=== PATIENT | female | born 1985 | race Caucasian/White ===

== ENCOUNTER → 2018-01-06 | Outpatient (CLI) | payer BC | LOC: RAD 22:43 | PROVIDERS: ATTEND Emergency Medicine | DX: R10.11 Right upper quadrant pain (principal) ==

== ENCOUNTER 2018-01-09 19:14 | Inpatient (IN) | payer BC ==
[2018-01-09] MEDS ORDERED: ONDANSETRON HCL INJ/PF 4 MG/2 ML SDV IV ONE (19:46)
[2018-01-09] MEDS ORDERED: NORMAL SALINE 1000 ML 1,000 ML IV ONE (19:46)
--- NOTE | 2018-01-09 19:54 | ER Document Report ---
ED GI/ - General Mode of Arrival: Ambulatory Information source: Patient TRAVEL OUTSIDE OF THE [place] IN LAST 30 DAYS: No <CORINA LIRA - Last Filed: 01/09/18 21:23> <FADY QUACH - Last Filed: 01/09/18 23:10> - General Chief Complaint: Abdominal Pain Stated Complaint: ABDOMINAL PAIN Time Seen by Provider: 01/09/18 19:35 Notes: Patient is a 32 year old female with a history of migraines presents to the emergency department complaining of RUQ abdominal pain, nausea and vomiting onset 3 days ago. Patient states her abdominal pain has been constant and she has taken Prilosec,Zantac and Carafate which she states temporarily relived her pain. Patient also states her abdominal pain is exacerbated with deep breathing. She mentions only vomiting 3 days ago but has had intermittent nausea since the onset of her symptoms. Spouse performed an gallbladder ultrasound 3 days ago which did not show any stones, sludge or common bile duct enlargement. Patient states the abdominal pain is not as severe today than when initially onset and further states her primary reason for coming to the emergency department today was due to developing a fever. Patient's LMP was 12/21/2017. (CORINA LIRA) - Related Data Allergies/Adverse Reactions: Sulfa (Sulfonamide Antibiotics) Allergy (Verified 01/09/18 19:51) Past Medical History - General Information source: Patient - Social History Smoking Status: Unknown if Ever Smoked Family History: Reviewed & Not Pertinent Neurological Medical History: Reports: Hx Migraine Past Surgical History: Reports: Hx Tonsillectomy, Other - [employer] teeth removal <CORINA LIRA - Last Filed: 01/09/18 21:23> Review of Systems - Review of Systems Constitutional: See HPI, Fever EENT: No symptoms reported Cardiovascular: No symptoms reported Respiratory: No symptoms reported Gastrointestinal: See HPI, Abdominal pain, Nausea, Vomiting Genitourinary: No symptoms reported Female Genitourinary: No symptoms reported Musculoskeletal: No symptoms reported Skin: No symptoms reported Hematologic/Lymphatic: No symptoms reported Neurological/Psychological: No symptoms reported -: Yes All other systems reviewed and negative <CORINA LIRA - Last Filed: 01/09/18 21:23> Physical Exam <CORINA LIRA - Last Filed: 01/09/18 21:23> <FADY QUACH - Last Filed: 01/09/18 23:10> - Vital signs Vitals: Temp Pulse Resp BP Pulse Ox 98.0 F 116 H 24 H 161/100 H 98 01/09/18 19:19 01/09/18 19:19 01/09/18 19:19 01/09/18 19:19 01/09/18 19:19 - Notes Notes: GENERAL: Alert, interacts well. No acute distress. HEAD: Normocephalic, atraumatic. EYES: Pupils equal, round, and reactive to light. Extraocular movements intact. ENT: Oral mucosa moist, tongue midline. NECK: Full range of motion. Supple. Trachea midline. LUNGS: Clear to auscultation bilaterally, no wheezes, rales, or rhonchi. No respiratory distress. HEART: Regular rate and rhythm. No murmurs, gallops, or rubs. ABDOMEN: Soft, Right upper quadrant exquisitely tender to palpation. Non- distended. Bowel sounds present in all 4 quadrants. EXTREMITIES: Moves all 4 extremities spontaneously. NEUROLOGICAL: Alert and oriented x3. Normal speech. PSYCH: Normal affect, normal mood. SKIN: Warm, dry, normal turgor. No rashes or lesions noted. (CORINA LIRA) Course - Laboratory Result Diagrams: 01/09/18 19:35 01/09/18 19:35 <CORINA LIRA - Last Filed: 01/09/18 21:23> - Laboratory Result Diagrams: 01/09/18 19:35 01/09/18 19:35 - Diagnostic Test Radiology reviewed: Image reviewed - Solitary gallstone lodged in the gallbladder neck with no bladder wall thickening and pericholecystic fluid <FADY QUACH - Last Filed: 01/09/18 23:10> - Re-evaluation Re-evalutation: 01/09/18 23:09 Initial blood pressure reading was not accurate, we repeated it and she was in the 123 systolic range. (FADY QUACH) - Vital Signs Vital signs: Temp Pulse Resp BP Pulse Ox 98.7 F 116 H 23 H 123/88 H 100 01/09/18 20:40 01/09/18 19:19 01/09/18 22:01 01/09/18 22:01 01/09/18 22:01 - Laboratory Laboratory results interpreted by me: 01/09/18 01/09/18 19:35 19:35 WBC 13.9 H Seg Neutrophils % 79.3 H Absolute Neutrophils 11.1 H Glucose 134 H AST 12 L Discharge <CORINA LIRA - Last Filed: 01/09/18 21:23> - Discharge Unit Admitted: Surgical Floor <FADY QUACH - Last Filed: 01/09/18 23:10> - Discharge Clinical Impression: Cholecystitis, acute with cholelithiasis Qualifiers: Cholelithiasis location: gallbladder Biliary obstruction: without biliary obstruction Qualified Code(s): K80.00 - Calculus of gallbladder with acute cholecystitis without obstruction Leukocytosis Qualifiers: Leukocytosis type: unspecified Qualified Code(s): D72.829 - Elevated white blood cell count, unspecified Condition: Stable Disposition: ADMITTED INPATIENT Referrals: WILFREDO LEMA MD [ACTIVE STAFF] - Follow up as needed Scribe Attestation: 01/09/18 20:44 I personally performed the services described in the documentation, reviewed and edited the documentation which was dictated to the scribe in my presence, and it accurately records my words and actions. (FADY QUACH) Scribe Documentation - Scribe Written by Iker:: Iker Lawson, 01/09/2018 19:58 acting as scribe for :: Berto <CORINA LIRA - Last Filed: 01/09/18 21:23>
[2018-01-09 20:03] LABS: ABSOLUTE LYMPHOCYTES (AUTO) 1.8 10^3/uL (0.5-4.7); ABSOLUTE NEUT (AUTO) 11.1 10^3/uL (1.7-8.2); BASOPHILS % (AUTO) 0.2 % (0-2); EOSINOPHILS % (AUTO) 0.3 % (0-6); HEMOGLOBIN 13.1 g/dL (12.0-15.5); LYMPHOCYTES % (AUTO) 13.2 % (13-45); MEAN CORPUSCULAR HEMOGLOBIN 28.6 pg (27.0-33.4); MEAN CORPUSCULAR HGB CONC 33.5 g/dL (32.0-36.0); MEAN CORPUSCULAR VOLUME 85 fl (80-97); PLATELET COUNT 330 10^3/uL (150-450); RED BLOOD COUNT 4.57 10^6/uL (3.72-5.28); RED CELL DISTRIBUTION WIDTH 12.3 % (11.5-14.0); SEGMENTED NEUTROPHILS % (AUTO) 79.3 % (42-78); TOTAL CELLS COUNTED % (AUTO) 100 %; WHITE BLOOD COUNT 13.9 10^3/uL (4.0-10.5)
[2018-01-09 20:08] LABS: ALANINE AMINOTRANSFERASE 19 U/L (9-52); ALBUMIN 4.6 g/dL (3.5-5.0); ALKALINE PHOSPHATASE 65 U/L (38-126); ANION GAP 9 (5-19); ASPARTATE AMINO TRANSFERASE 12 U/L (14-36); BILIRUBIN,DIRECT 0.4 mg/dL (0.0-0.4); BILIRUBIN,TOTAL 0.5 mg/dL (0.2-1.3); BLOOD UREA NITROGEN 8 mg/dL (7-20); CALCIUM 9.6 mg/dL (8.4-10.2); CARBON DIOXIDE 29 mmol/L (22-30); CHLORIDE 100 mmol/L (98-107); GLUCOSE 134 mg/dL (75-110); LIPASE 42.9 U/L (23-300); POTASSIUM 4.1 mmol/L (3.6-5.0); SODIUM 138.1 mmol/L (137-145); TOTAL PROTEIN 7.9 g/dL (6.3-8.2)
[2018-01-09 20:20] LABS: APPEARANCE,URINE CLEAR; BILIRUBIN,URINE NEGATIVE (NEGATIVE); COLOR,URINE COLORLESS; GLUCOSE, URINE NEGATIVE (NEGATIVE); KETONES,URINE NEGATIVE (NEGATIVE); LEUKOCYTE ESTERASE,URINE NEGATIVE (NEGATIVE); NITRITE,URINE NEGATIVE (NEGATIVE); PROTEIN,URINE NEGATIVE (NEGATIVE); URINE SPECIFIC GRAVITY 1.002; UROBILINOGEN,URINE NEGATIVE mg/dL (<2.0)
[2018-01-09] MEDS ORDERED: PIPERACILLIN/TAZOBACTAM 3.375 GM VIAL IV ONE (23:07)
[2018-01-09] MEDS ORDERED: ONDANSETRON HCL INJ/PF 4 MG/2 ML SDV IV PRN (23:39)
--- NOTE | 2018-01-09 23:39 | PDOC H&P ---
History of Present Illness Admission Date/PCP: 01/09/18 Patient complains of: RUQ abdominal pain History of Present Illness: MARIA LUISA BRUNER is a 32 year old female healthy with a 1 week hx of abdominal discomfort, then localized in the RUQ for the past 3 days with intense nausea and anorexia. AN US of the GB has been done and it is significant for acute cholecystitis with cholelithiasis Past Medical History Neurological Medical History: Reports: Migraine Past Surgical History Past Surgical History: Reports: Tonsillectomy, Other - [employer] teeth removal Social History Smoking Status: Unknown if Ever Smoked Family History Family History: Reviewed & Not Pertinent Parental Family History Reviewed: No Children Family History Reviewed: No Sibling(s) Family History Reviewed.: No Medication/Allergy Home Medications: Hydrocodone/Acetaminophen [Hydrocodone-Acetamin 5-325 mg] 1 tab PO Q4H PRN 01/09 Metoclopramide HCl [Reglan 10 mg Tablet] 10 mg PO Q8H PRN 01/09/18 Omeprazole 20 mg PO DAILY 01/09/18 Ranitidine HCl 150 mg PO BID 01/09/18 Sucralfate [Carafate 1 gm Tablet] 1,000 mg PO Q6H 01/09/18 Allergies/Adverse Reactions: Sulfa (Sulfonamide Antibiotics) Allergy (Verified 01/09/18 19:51) Physical Exam Vital Signs: Temp Pulse Resp BP Pulse Ox 98.7 F 116 H 23 H 123/88 H 100 01/09/18 20:40 01/09/18 19:19 01/09/18 22:01 01/09/18 22:01 01/09/18 22:01 Intake & Output 01/08/18 01/09/18 01/10/18 06:59 06:59 06:59 Intake Total 1000 Balance 1000 Weight 78 kg General appearance: PRESENT: mild distress Head exam: PRESENT: atraumatic Eye exam: PRESENT: EOMI Mouth exam: PRESENT: neck supple Neck exam: PRESENT: full ROM Respiratory exam: PRESENT: clear to auscultation deanna Cardiovascular exam: PRESENT: RRR GI/Abdominal exam: PRESENT: soft, tenderness - in the RUQ with grimacing Rectal exam: PRESENT: deferred Extremities exam: PRESENT: full ROM Musculoskeletal exam: PRESENT: full ROM Neurological exam: PRESENT: alert, oriented to time, oriented to situation Skin exam: PRESENT: warm Results Laboratory Results: 01/09/18 19:35 01/09/18 19:35 01/09/18 01/09/18 01/09/18 19:35 19:35 20:00 WBC 13.9 H RBC 4.57 Hgb 13.1 Hct 39.0 MCV 85 MCH 28.6 MCHC 33.5 RDW 12.3 Plt Count 330 Seg Neutrophils % 79.3 H Lymphocytes % 13.2 Monocytes % 7.0 Eosinophils % 0.3 Basophils % 0.2 Absolute Neutrophils 11.1 H Absolute Lymphocytes 1.8 Absolute Monocytes 1.0 Absolute Eosinophils 0.0 Absolute Basophils 0.0 Sodium 138.1 Potassium 4.1 Chloride 100 Carbon Dioxide 29 Anion Gap 9 BUN 8 Creatinine 0.67 Est GFR ( Amer) > 60 Est GFR (Non-Af Amer) > 60 Glucose 134 H Calcium 9.6 Total Bilirubin 0.5 AST 12 L ALT 19 Alkaline Phosphatase 65 Total Protein 7.9 Albumin 4.6 Lipase 42.9 Urine Color COLORLESS Urine Appearance CLEAR Urine pH 8.0 Ur Specific Rodney 1.002 Urine Protein NEGATIVE Urine Glucose (UA) NEGATIVE Urine Ketones NEGATIVE Urine Blood NEGATIVE Urine Nitrite NEGATIVE Ur Leukocyte Esterase NEGATIVE Assessment & Plan - Diagnosis (1) Cholecystitis, acute with cholelithiasis Qualifiers: Cholelithiasis location: gallbladder Biliary obstruction: without biliary obstruction Qualified Code(s): K80.00 - Calculus of gallbladder with acute cholecystitis without obstruction Is this a current diagnosis for this admission?: Yes (2) Leukocytosis Qualifiers: Leukocytosis type: unspecified Qualified Code(s): D72.829 - Elevated white blood cell count, unspecified Is this a current diagnosis for this admission?: Yes - Plan Summary Plan Summary: A/ Abdominal pain, RUQ pain Leukocytosis 13.9 Liver prophile normal US of the GB demonstrates thickened gallbladder wall with stone in the gallbladder neck P/ Admit IVF NPO IV zosyn 3.375 gr Q6 Plan laparoscopic cholecystectomy, possible open, possible cholangiogram tomorrow. Procedure, risks, benefits, complications, alternatives, including bleeding from the liver and or injury to the bile ducts requiring transfer to a tertiary medical center for open repair have been discussed with the patient. Her questions were answered and she decided to proceed.
[2018-01-09] MEDS ORDERED: FAMOTIDINE INJ/PF 20 MG/2 ML SDV IV ONE (23:55)
--- NOTE | 2018-01-09 23:55 | RADIOLOGY REPORT (SQ) ---
US ABDOMEN LIMITED HISTORY: Right upper quadrant pain, fever COMPARISON: None. TECHNIQUE: Grayscale and color Doppler imaging of the right upper quadrant was performed. FINDINGS: The liver measures 17.2 cm. Normal liver echogenicity. Shadowing gallstone is seen in the gallbladder neck gallbladder wall measures 5 mm. There is surrounding pericholecystic fluid. Common bile duct measures 2 mm. No intrahepatic biliary ductal dilatation. The pancreas is not visualized due to overlying bowel gas. Right kidney measures 11.1 cm in length, without hydronephrosis. Visualized portions of the IVC and aorta are patent. IMPRESSION: Cholelithiasis with gallbladder wall thickening and surrounding pericholecystic fluid, suggestive of acute cholecystitis.
[2018-01-10] MEDS: NORMAL SALINE 1000 ML 1,000 ML IV PRN ×4 (00:37→22:14)
[2018-01-10] MEDS: MORPHINE SULFATE 10 MG/ML INJ IV PRN ×2 (01:37→21:58)
[2018-01-10 06:57] LABS: ABSOLUTE EOSINOPHILS # (AUTO) 0.1 10^3/uL (0.0-0.6); ABSOLUTE LYMPHOCYTES (AUTO) 1.9 10^3/uL (0.5-4.7); ABSOLUTE MONOCYTES (AUTO) 1.1 10^3/uL (0.1-1.4); ABSOLUTE NEUT (AUTO) 6.9 10^3/uL (1.7-8.2); BASOPHILS % (AUTO) 0.3 % (0-2); EOSINOPHILS % (AUTO) 0.6 % (0-6); HEMATOCRIT 34.7 % (36.0-47.0); HEMOGLOBIN 11.8 g/dL (12.0-15.5); LYMPHOCYTES % (AUTO) 18.9 % (13-45); MEAN CORPUSCULAR HGB CONC 33.9 g/dL (32.0-36.0); MEAN CORPUSCULAR VOLUME 86 fl (80-97); MONOCYTES % (AUTO) 10.8 % (3-13); PLATELET COUNT 269 10^3/uL (150-450); RED BLOOD COUNT 4.05 10^6/uL (3.72-5.28); RED CELL DISTRIBUTION WIDTH 12.3 % (11.5-14.0); SEGMENTED NEUTROPHILS % (AUTO) 69.4 % (42-78); TOTAL CELLS COUNTED % (AUTO) 100 %; WHITE BLOOD COUNT 9.9 10^3/uL (4.0-10.5)
[2018-01-10 07:03] LABS: ALANINE AMINOTRANSFERASE 33 U/L (9-52); ALBUMIN 3.6 g/dL (3.5-5.0); ALKALINE PHOSPHATASE 56 U/L (38-126); ANION GAP 9 (5-19); ASPARTATE AMINO TRANSFERASE 24 U/L (14-36); BILIRUBIN,DIRECT 0.3 mg/dL (0.0-0.4); BILIRUBIN,TOTAL 0.9 mg/dL (0.2-1.3); BLOOD UREA NITROGEN 7 mg/dL (7-20); CALCIUM 8.5 mg/dL (8.4-10.2); CARBON DIOXIDE 24 mmol/L (22-30); CHLORIDE 107 mmol/L (98-107); GLUCOSE 86 mg/dL (75-110); POTASSIUM 4.1 mmol/L (3.6-5.0); SODIUM 139.9 mmol/L (137-145)
[2018-01-10] MEDS ORDERED: BUPIVACAINE HCL 0.5%-EPI 1:200000 INJ/PF 30 ML VIAL ONE (08:28)
[2018-01-10] MEDS ORDERED: MIDAZOLAM 2 MG/2 ML INJ ONE (09:53)
[2018-01-10] MEDS ORDERED: HYDROMORPHONE HCL INJ/PF 2 MG/ML AMPULE ONE (09:53)
[2018-01-10] MEDS ORDERED: FENTANYL CITRATE INJ/PF 250 MCG/5 ML AMPULE ONE (09:53)
[2018-01-10] MEDS ORDERED: LIDOCAINE 2% INJ-PF (20 MG/ML) 10 ML AMPUL ONE (09:53)
[2018-01-10] MEDS ORDERED: PROPOFOL INJ 200 MG/20 ML VIAL IV ONE (09:53)
[2018-01-10] MEDS ORDERED: SCOPOLAMINE HYDROBROMIDE 1.5 MG PATCH.TD72 ONE (09:58)
[2018-01-10] MEDS ORDERED: PHENYLEPHRINE HCL INJ/PF 10 MG/1 ML SDV ONE (10:33)
[2018-01-10] MEDS ORDERED: ROCURONIUM BROMIDE INJ 50 MG/5 ML VIAL IV ONE (10:33)
[2018-01-10] MEDS ORDERED: GLYCOPYRROLATE 1 MG/5 ML SYRINGE ONE (10:33)
[2018-01-10] MEDS ORDERED: DEXAMETHASONE SOD PHOSPHATE INJ 4 MG/1 ML VIAL ONE (10:33)
[2018-01-10] MEDS ORDERED: NEOSTIGMINE METHYLSULFATE 10 MG/10 ML VIAL ONE (10:33)
[2018-01-10] MEDS ORDERED: ONDANSETRON HCL INJ/PF 4 MG/2 ML SDV ONE (10:33)
[2018-01-10] MEDS ORDERED: KETOROLAC TROMETHAMINE 60 MG/2 ML SDV ONE (10:33)
[2018-01-10] MEDS ORDERED: SUCCINYLCHOLINE CHLORIDE INJ 200 MG/10 ML VIAL ONE (10:33)
[2018-01-10] MEDS ORDERED: METOCLOPRAMIDE HCL INJ/PF 10 MG/2 ML SDV ONE (10:33)
[2018-01-10] MEDS ORDERED: FENTANYL CITRATE INJ/PF 100 MCG/2 ML AMPUL IV PRN ×3 (11:24)
[2018-01-10] MEDS ORDERED: MEPERIDINE HCL/PF INJ 25 MG/1 ML DISP.SYRIN IV PRN (11:24)
[2018-01-10] MEDS ORDERED: ONDANSETRON HCL INJ/PF 4 MG/2 ML SDV IV PRN (11:24)
[2018-01-10] MEDS ORDERED: MORPHINE SULFATE 10 MG/ML INJ IV PRN (11:24)
[2018-01-10] MEDS ORDERED: PROMETHAZINE HCL INJ 25 MG/1 ML VIAL IV PRN ×2 (11:24)
[2018-01-10] MEDS ORDERED: DIPHENHYDRAMINE HCL 50 MG/ML VIAL IV PRN (11:24)
[2018-01-10] MEDS ORDERED: ACETAMINOPHEN 1,000 MG/100 ML RTUPB IV ONE (11:41)
[2018-01-10] MEDS ORDERED: PROMETHAZINE HCL INJ 25 MG/1 ML VIAL ONE (12:54)
--- NOTE | 2018-01-10 13:00 | Operative Report ---
Nonrecallable Operative Report DATE OF SURGERY: 01/10/18 PREOPERATIVE DIAGNOSIS: acute cholecystitis and cholelithiasis POSTOPERATIVE DIAGNOSIS: same OPERATION: laparoscopic cholecystectomy SURGEON: TOM RODRIGUEZ [employer] COMPLIANCE ANALYST: JULIANNA CANCHOLA ANESTHESIA: GA - plus 30 mL 1% lidocaine with epinephrine TISSUE REMOVED OR ALTERED: gallbladder COMPLICATIONS: none ESTIMATED BLOOD LOSS: < 5 mL INTRAOPERATIVE FINDINGS: thickened gallbaldder with gallstones PROCEDURE: see dictation
[2018-01-10] MEDS: PIPERACILLIN SODIUM/TAZOBACTAM 3.375 GM in NORMAL SALINE 100 ML IV SCH ×3 (16:20→21:58)
--- NOTE | 2018-01-10 17:21 | OPERATIVE REPORT E ---
Operative Report NAME: MARIA LUISA BRUNER : 1985 AGE: 32Y DATE OF SURGERY: 01/10/2018 ROOM: 215 PREOPERATIVE DIAGNOSIS: ACUTE CHOLECYSTITIS WITH CHOLELITHIASIS. POSTOPERATIVE DIAGNOSIS: ACUTE CHOLECYSTITIS WITH CHOLELITHIASIS. OPERATION: Laparoscopic cholecystectomy. SURGEON: TOM RODRIGUEZ M.D. SENIOR EDITOR: Jack Macias MD ANESTHESIA: General plus 30 mL of 1% lidocaine with epinephrine. COMPLICATIONS: None. FLUIDS: 1200 URINE OUTPUT: Not monitored. ESTIMATED BLOOD LOSS: Less than 10 mL. DRAINS: None. INDICATIONS/FINDINGS: This is a healthy 32-year-old female who presented to the emergency room on the evening of 01/09/2018 complaining of right upper quadrant pain, intense nausea, emesis, found to have acute cholecystitis and cholelithiasis. The patient was scheduled to undergo laparoscopic cholecystectomy with cholangiogram today. The procedure, benefits, and complications including the possibility of bleeding or bile duct injury, which may require transfer to a tertiary center for open repair has discussed with the patient. Her questions were answered and she agrees to proceed. PROCEDURE: The patient was taken to the operating room. She was placed in supine position. She was administered anesthesia by endotracheal intubation. The abdomen was prepped and draped in usual sterile fashion. Incision was made just above the umbilicus with a #15 blade. The skin was tethered with towel clips and a 5 mm with Optiview adapter on the scope was inserted through the abdominal wall and into the peritoneal cavity, and a pneumoperitoneum was obtained. The patient was placed in the reverse Trendelenburg position with the right side elevated. Three additional ports, one 12 mm and two 5 mm ports were placed into the epigastric and right lateral quadrant of the abdomen, respectively. The gallbladder was found to be thick and inflamed, filled with fluid and stones. Therefore, a laparoscopic needle was inserted through the epigastric port and the gallbladder was punctured. About 30 mL of reta colored fluid was obtained and sent to the lab for aerobic and anaerobic culture, and gram stain. After this was accomplished, the gallbladder was grasped by the fundus, elevated, and retroflexed. The cystic duct was grasped and then pulled anterior toward the patient's right with exposure of the triangle of Calot. The critical view of safety was obtained by dividing the peritoneal attachments of the cystic neck and duct medially and laterally so to exposure the cystic duct. A space was then obtained posterior to the cystic duct dissected off the cystic artery. After the two were clearly identified, both the cystic duct and artery were double clipped proximally and divided with scissors. The gallbladder was then dissected off the liver bed using a hook cautery and exctracted from the peritoneal cavity using an Endobag. The pneumoperitoneum was then re-established. The liver bed was inspected and no active bleeding was noted. The area was irrigated with normal saline which was fully aspirated. At this point, a fascial closure device was used to place a [id number] 0 Vicryl suture to closure the epigastric fascial defect, and left untied. All instruments were removed. The pneumoperitoneum was released. The ports were removed as well. The fascial defect in the epigastrium was closed with the previously placed 0 Vicryl suture. All skin incisions were closed with 4-0 Vicryl running subcuticular suture, with Dermabond applied. The patient tolerated the procedure well. She was extubated and transferred to the recovery room in satisfactory condition. DICTATING PHYSICIAN: TOM RODRIGUEZ M.D. [id number] PHY#: [id number] ID: [id number] JOB#: [id number] ACCT: [id number] cc:TOM RODRIGUEZ M.D. > MTDD
[2018-01-10] MEDS: DOCUSATE SODIUM 100 MG CAPSULE PO SCH (17:56)
[2018-01-10] MEDS: KETOROLAC TROMETHAMINE INJ/PF 30 MG/1 ML SDV IV PRN (17:57)
[2018-01-10] MEDS: FAMOTIDINE INJ/PF 20 MG/2 ML SDV IV SCH (21:58)
[2018-01-11] MEDS: PIPERACILLIN SODIUM/TAZOBACTAM 3.375 GM in NORMAL SALINE 100 ML IV SCH ×2 (03:08→10:13)
[2018-01-11] MEDS: KETOROLAC TROMETHAMINE INJ/PF 30 MG/1 ML SDV IV PRN ×2 (03:08→10:50)
[2018-01-11 05:44] LABS: HEMATOCRIT 31.5 % (36.0-47.0); HEMOGLOBIN 10.7 g/dL (12.0-15.5); MEAN CORPUSCULAR HEMOGLOBIN 29.3 pg (27.0-33.4); MEAN CORPUSCULAR HGB CONC 33.9 g/dL (32.0-36.0); MEAN CORPUSCULAR VOLUME 86 fl (80-97); PLATELET COUNT 242 10^3/uL (150-450); RED BLOOD COUNT 3.66 10^6/uL (3.72-5.28); RED CELL DISTRIBUTION WIDTH 12.5 % (11.5-14.0); WHITE BLOOD COUNT 14.6 10^3/uL (4.0-10.5)
[2018-01-11 06:06] LABS: ALANINE AMINOTRANSFERASE 61 U/L (9-52); ALKALINE PHOSPHATASE 66 U/L (38-126); ANION GAP 8 (5-19); ASPARTATE AMINO TRANSFERASE 41 U/L (14-36); BILIRUBIN,DIRECT 0.3 mg/dL (0.0-0.4); BILIRUBIN,TOTAL 0.5 mg/dL (0.2-1.3); BLOOD UREA NITROGEN 8 mg/dL (7-20); CALCIUM 8.8 mg/dL (8.4-10.2); CARBON DIOXIDE 21 mmol/L (22-30); CHLORIDE 110 mmol/L (98-107); GLUCOSE 124 mg/dL (75-110); POTASSIUM 4.5 mmol/L (3.6-5.0); SODIUM 139.2 mmol/L (137-145); TOTAL PROTEIN 5.8 g/dL (6.3-8.2)
[2018-01-11] MEDS ORDERED: ENOXAPARIN SODIUM INJ 40 MG/0.4 ML DISP.SYRIN SUBCUT SCH (10:00)
[2018-01-11] MEDS: DOCUSATE SODIUM 100 MG CAPSULE PO SCH (10:12)
[2018-01-11] MEDS: FAMOTIDINE INJ/PF 20 MG/2 ML SDV IV SCH (10:12)
--- NOTE | 2018-01-11 11:19 | PDOC PROGRESS REPORT ---
Subjective Progress Note for:: 01/11/18 Subjective:: Feels well. Some soreness. Tolerating diet well. Reason For Visit: CHOLEITHIASIS Physical Exam Vital Signs: Temp Pulse Resp BP Pulse Ox 98.2 F 55 L 17 102/60 96 01/11/18 07:18 01/11/18 08:15 01/11/18 08:15 01/11/18 08:15 01/11/18 08:15 Intake & Output 01/10/18 01/11/18 01/12/18 06:59 06:59 06:59 Intake Total 2060 Balance 2060 Weight 76 kg General appearance: PRESENT: no acute distress, cooperative Respiratory exam: PRESENT: clear to auscultation deanna Cardiovascular exam: PRESENT: RRR GI/Abdominal exam: PRESENT: other - Soft, nondistended, minimal tenderness. Wounds are clean dry and intact. Results Laboratory Results: 01/11/18 04:59 01/11/18 04:59 01/11/18 01/11/18 04:59 04:59 WBC 14.6 H RBC 3.66 L Hgb 10.7 L Hct 31.5 L MCV 86 MCH 29.3 MCHC 33.9 RDW 12.5 Plt Count 242 Sodium 139.2 Potassium 4.5 Chloride 110 H Carbon Dioxide 21 L Anion Gap 8 BUN 8 Creatinine 0.65 Est GFR ( Amer) > 60 Est GFR (Non-Af Amer) > 60 Glucose 124 H Calcium 8.8 Total Bilirubin 0.5 AST 41 H ALT 61 H Alkaline Phosphatase 66 Total Protein 5.8 L Albumin 3.0 L Impressions: Abdomen Ultrasound 01/09/18 20:37 IMPRESSION: Cholelithiasis with gallbladder wall thickening and surrounding pericholecystic fluid, suggestive of acute cholecystitis. Assessment & Plan - Diagnosis (1) Cholecystitis, acute with cholelithiasis Qualifiers: Cholelithiasis location: gallbladder Biliary obstruction: without biliary obstruction Qualified Code(s): K80.00 - Calculus of gallbladder with acute cholecystitis without obstruction Is this a current diagnosis for this admission?: Yes Plan: Status post laparoscopic cholecystectomy. Suspect mild transaminase elevation is due to dissection had an infected bed. Suspect her decreased hematocrit due to hemodilution and her leukocytosis reactive. Will discharge patient home. Encourage patient to stay active. will follow-up in [place] [facility] in a couple weeks.
--- NOTE | 2018-01-11 11:41 | DISCHARGE SUMMARY E ---
Discharge Summary NAME: MARIA LUISA BRUNER : 1985 AGE: 32Y ADMITTED: 01/10/2018 DISCHARGED: 01/11/2018 DISCHARGE DIAGNOSES: ACUTE CHOLECYSTITIS. PROCEDURE PERFORMED DURING HOSPITALIZATION: Laparoscopic cholecystectomy performed by Dr. Khan on January 10, 2018. HOSPITAL COURSE: The patient underwent the abovementioned procedure. She did well postoperatively. She was feeling better at the time of discharge with benign physical exam. Patient is now being discharged to home in good condition. She is encouraged to stay active at home but avoid strenuous activity. She will follow up in [facility] in a couple of weeks. She may resume her home medications. Additional medication is Percocet 1 p.o. q. 4 hours p.r.n. pain. She is to follow a low fat diet. She is to call us for any problems such as fever, increasing abdominal pain, jaundice, nausea, or vomiting. DICTATING PHYSICIAN: HERBER FLAHERTY M.D. [id number] Y#: [id number] ID: [id number] JOB#: [id number] ACCT: [id number] cc:Chris NGUYEN M.D. >
[2018-01-11 11:51] VITALS: BP 105/61
== END 2018-01-11 12:24 | disposition home or self-care (01) | DRG 419 ==
LOC: ER 19:14 → EH 23:45 → INTOOBSV 23:45 → 2S 01-10 01:26 → OBSVTOIN 01-10 14:01
PROVIDERS: ADMIT Surgery; ATTEND Surgery
PROC: 0FT44ZZ Resection of Gallbladder, Percutaneous Endoscopic Approach (ICD-10-PCS; principal; 2018-01-10 10:30)
DX: K80.00 Calculus of gallbladder with acute cholecystitis without obstruction (principal); D72.829 Elevated white blood cell count, unspecified
CPT/HCPCS: 36415; 76705; 790; 80053; 81001; 81025; 83690; 85025; 85027; 87040; 87070; 87075; 87205; 88304; 94799; 96360; 99285; G0378; J0131; J0330; J1100; J1170; J1650; J1885; J2250; J2270; J2370; J2405; J2543; J2550; J2704; J2765; J3010; J3490; S0028